=== PATIENT | male | born 1980 | race Caucasian/White ===

== ENCOUNTER 2021-09-29 12:25 | Emergency (ER) | payer MEDICAID ==
[~2021-09-29] VITALS: Ht 170.2 cm; Wt 88.6 kg
[2021-09-29] MEDS ORDERED: IBUPROFEN 800 MG TABLET PO ONE (13:15)
[2021-09-29] MEDS ORDERED: BACITRACIN 0.9 GM PACKET OINTMENT TP ONE (13:15)
[2021-09-29] MEDS ORDERED: PERTUSS(ACELL),DIPH,TET VAC/PF 0.5 ML SYRINGE IM. ONE (13:15)
[2021-09-29] MEDS ORDERED: POVIDONE-IODINE 10% 15 ML SOLUTION UD TP ONE (13:15)
[2021-09-29 14:22] VITALS: BP 131/66
== END 2021-09-29 14:32 | disposition home or self-care (01) ==
LOC: EMS 12:28
DX: S91.331A Puncture wound without foreign body, right foot, initial encounter (principal); F17.210 Nicotine dependence, cigarettes, uncomplicated; W45.0XXA Nail entering through skin, initial encounter; Y93.89 Activity, other specified; Y92.89 Other specified places as the place of occurrence of the external cause; Y99.8 Other external cause status
CPT/HCPCS: 90471; 90715; 99284